=== PATIENT | male | born 1985 | race Caucasian/White ===

== ENCOUNTER 2023-05-08 10:00 | Emergency (ER) | payer SELFPAY ==
[~2023-05-08] VITALS: Ht 162.6 cm; Wt 60.4 kg
[~2023-05-08 10:00] MED LIST: AZIT250T PO; CYCL-1 PO
[2023-05-08] MEDS ORDERED: LIDOcaine 1% W/epiNEPHrine 1:100,000 20ml vial SQ ONE (15:55)
[2023-05-08] MEDS ORDERED: CHLO118M PO (16:00)
[2023-05-08] MEDS ORDERED: CLIN-97 PO (16:00)
[2023-05-08] MEDS ORDERED: NAPR-56 PO (16:00)
[2023-05-08] MEDS ORDERED: HYDROcodone/acetaminophen 5mg/325mg tablet PO ONE (16:10)
[2023-05-08] MEDS ORDERED: clindamycin 150mg capsule PO ONE (16:10)
--- NOTE | 2023-05-08 16:14 | NUR ---
Mustapha Jones, Was seen at [facility] on 05/08/2023 and is excused from work through 05/10/23 and to return on 05/11/23. Thank you, Dr. Dario CORDOBA
[2023-05-08 16:17] VITALS: BP 133/74; PULSE 87; RESP 16; TEMP 98.1; O2SAT 99
--- NOTE | 2023-05-08 16:17 | NUR ---
Note authorized verbally with
== END 2023-05-08 16:18 | disposition home or self-care (01) ==
LOC: ER 10:00
DX: K04.7 Periapical abscess without sinus (principal); F17.200 Nicotine dependence, unspecified, uncomplicated; Z79.899 Other long term (current) drug therapy
CPT/HCPCS: 41800; 99284; J3490